=== PATIENT | male | born 1940 | race Caucasian/White ===

== ENCOUNTER → 2018-11-20 16:40 | Outpatient (CLI) | payer MEDICARE, SELFPAY ==
--- NOTE | 2018-11-20 16:43 | DI.RAD.S_ITS ---
PROCEDURE: XR LUMBAR SPINE 2-3V INDICATIONS: Sciatic leg pain, low back pain TECHNIQUE: 3 views of the lumbar spine were acquired. COMPARISON: None. FINDINGS: Bones: 5 [id number] vertebrae are present. There is grade I L1 on L2 and L2 on L3 retrolisthesis. No vertebral body compression fractures. No suspicious bony lesions. There are mild degenerative changes including intervertebral disc space narrowing, endplate sclerosis, osteophytosis, and facet sclerosis. Soft tissues: Overlying bowel gas pattern is normal. Scattered atheromatous calcifications are present within the abdominal aorta. IMPRESSION: Degenerative change and aortic atherosclerosis. Dictated by: Estrella Bush M.D. on 11/20/2018 at 17:52 Approved by: Estrella Bush M.D. on 11/20/2018 at 17:54
== END ==
PROVIDERS: PCP Internal Medicine; Visit Provider Nurse Practitioner
DX: M54.30 Sciatica, unspecified side (principal); M54.5 Low back pain; M47.816 Spondylosis without myelopathy or radiculopathy, lumbar region; I70.0 Atherosclerosis of aorta
CPT/HCPCS: 72100

== ENCOUNTER → 2018-12-01 13:21 | Outpatient (CLI) | payer MEDICARE, SELFPAY ==
--- NOTE | 2018-12-01 13:22 | DI.RAD.S_ITS ---
PROCEDURE: XR HIP W PEL IF DONE LT 2V INDICATIONS: Sciatic Pain TECHNIQUE: AP pelvis with lateral view(s) of the left hip(s). COMPARISON: [facility], , HIP 2V LEFT, 02/11/2013, 16:12. FINDINGS: Bones: No fractures or dislocations. Pelvic ring appears intact. No suspicious bony lesions. Lower lumbar spondylosis. Bilateral hip joint degeneration, mild. Soft tissues: The visualized bowel gas pattern is normal. No suspicious soft tissue calcifications. IMPRESSION: Mild bilateral hip joint degeneration, grossly unchanged on the left since 02/11/13. Dictated by: Arpit Cm M.D. on 12/01/2018 at 15:25 Approved by: Arpit Cm M.D. on 12/01/2018 at 15:26
== END ==
PROVIDERS: PCP Internal Medicine; Visit Provider Internal Medicine
DX: M54.30 Sciatica, unspecified side (principal); M16.0 Bilateral primary osteoarthritis of hip
CPT/HCPCS: 73502

== ENCOUNTER → 2019-01-16 09:31 | Outpatient (CLI) | payer MEDICARE, SELFPAY ==
--- NOTE | 2019-01-16 09:33 | DI.MRI.S_ITS ---
PROCEDURE: MR LUMBAR SPINE WO CON INDICATIONS: lumbar radiuclopathy TECHNIQUE: Noncontrast sagittal T1 spin echo and T2 fast echo, sagittal STIR, axial T1 and T2 fast spin echo through the lumbar spine. In cases with scoliosis, additional coronal T2 fast spin echo may be performed. COMPARISON: None. FINDINGS: Image quality: Good. There is patient motion on some sequences. Alignment and Curvature: There is normal bony alignment. Bone Marrow: Marrow is of normal overall signal. No acute vertebral body compression fractures. Spinal Cord: Conus medullaris terminates at the L1-L2 level. Visualized cord demonstrates normal signal and size. Paraspinous Soft Tissues: No paravertebral masses. T12-L1: Normal appearance L1-L2: Severe chronic disc levels. Posterior disc plus osteophyte. No canal stenosis. Mild bilateral foraminal stenosis. L2-L3: Diffuse posterior disc bulge. No canal stenosis. Mild bilateral foraminal stenosis. Mild facet hypertrophy. L3-L4: Posterior disc bulge. Facet and ligament hypertrophy. Borderline canal stenosis. Mild bilateral foraminal stenosis. L4-L5: There is a large acute left posterior disc extrusion measuring approximately 1.4 x 0.9 x 1.4 cm obliterating the left L5 nerve root and left S1 nerve root in the left lateral recess. This occurs below the exiting left L4 nerve root. Mild facet hypertrophy. L5-S1: Normal appearance. IMPRESSION: Large acute left posterior disc protrusion at L4-L5 obliterating the left L5 root and left S1 nerve in the left lateral recess. Dictated by: Chago Fisher M.D. on 01/18/2019 at 8:48 Approved by: Chago Fisher M.D. on 01/18/2019 at 8:59
== END ==
PROVIDERS: PCP Internal Medicine; Visit Provider Physical Medicine & Rehabilitation Pain Medicine
DX: M51.16 Intervertebral disc disorders with radiculopathy, lumbar region (principal); M48.062 Spinal stenosis, lumbar region with neurogenic claudication
CPT/HCPCS: 72148

== ENCOUNTER → 2019-02-17 15:38 | Outpatient (CLI) | payer MEDICARE, SELFPAY ==
[2019-02-17 16:08] LABS: Add Manual Diff / Slide Review NO; Basophils Absolute Auto 100 /uL (0-100); Basophils Percent Auto 1.2 % (0-2); Eosinophils Absolute Auto 200 /uL (0-450); Eosinophils Percent Auto 3.1 % (2-4); Hemoglobin 14.2 g/dL (13.5-17.5); Lymphocytes Absolute Auto 1900 /uL (1100-4500); Lymphocytes Percent Auto 25.1 % (25-40); Mean Corpuscular HGB Conc 33.8 % (30-36); Mean Corpuscular Hemoglobin 31.9 PG (26-34); Mean Corpuscular Volume 94.2 fL (80-100); Monocytes Absolute Auto 800 /uL (0-900); Monocytes Percent Auto 10.5 % (3-14); Neutrophils Absolute Auto 4600 /uL (1500-7000); Neutrophils Percent Auto 60.1 % (50-75); Platelet Count 212 X10^3/uL (150-400); Red Blood Cell Count 4.46 X10^6/uL (4.5-5.9); Red Cell Distribution Width 13.1 % (11.6-14.8); White Blood Cell Count 7.6 X10^3/uL (4.5-11.0)
== END ==
PROVIDERS: Orthopaedic Surgery; PCP Internal Medicine; Visit Provider Internal Medicine
DX: Z01.818 Encounter for other preprocedural examination (principal); E11.9 Type 2 diabetes mellitus without complications; E78.5 Hyperlipidemia, unspecified
CPT/HCPCS: 36415; 85025; 93005

== ENCOUNTER → 2019-05-05 08:00 | Outpatient (CLI) | payer MEDICARE, SELFPAY ==
[2019-05-05 08:32] LABS: Cholesterol 189 mg/dL (140-199); HDL Cholesterol 52 mg/dL (40-60); LDL Cholesterol Calculated 116 mg/dL (<100); Triglycerides 103 mg/dL (35-150)
[2019-05-06 15:39] LABS: Hemoglobin A1C% w Est Avg Glu 5.8 % (4.0-6.0)
== END ==
PROVIDERS: PCP Internal Medicine; Visit Provider Internal Medicine
DX: E11.9 Type 2 diabetes mellitus without complications (principal); E78.5 Hyperlipidemia, unspecified
CPT/HCPCS: 36415; 80061; 83036

== ENCOUNTER → 2020-06-01 15:35 | Outpatient (CLI) | payer MEDICARE, SELFPAY ==
[2020-06-01 16:59] LABS: Hemoglobin A1C% w Est Avg Glu 6.4 % (4.0-6.0)
[2020-06-01 17:02] LABS: Alanine Aminotransferase 19 IU/L (<50); Albumin 4.4 g/dL (3.5-5.0); Albumin Globulin Ratio 1.5 (1.0-2.8); Alkaline Phosphatase 59 U/L (38-126); Aspartate Aminotransferase 26 IU/L (17-59); BUN Creatinine Ratio 30.6 (6-22); Bilirubin Total 0.4 mg/dL (0.2-1.3); Blood Urea Nitrogen 22 mg/dL (9-20); Carbon Dioxide 32 mmol/L (22-32); Chloride 101 mmol/L (98-107); Estimated Glomerular Filt Rate > 60.0 mL/min (>60); Globulin 2.9 g/dL (1.7-4.1); Glucose 120 mg/dL (80-110); HEMOLYSIS < 15 (0-50); Potassium 4.9 mmol/L (3.4-5.1); Sodium 137 mmol/L (137-145); Total Protein 7.3 g/dL (6.3-8.2)
== END ==
PROVIDERS: PCP Internal Medicine; Referring Provider Internal Medicine; Visit Provider Internal Medicine
DX: E11.9 Type 2 diabetes mellitus without complications (principal); E78.2 Mixed hyperlipidemia; K21.9 Gastro-esophageal reflux disease without esophagitis
CPT/HCPCS: 36415; 80053; 83036

== ENCOUNTER → 2022-05-21 11:41 | Outpatient (CLI) | payer MEDICARE, SELFPAY ==
[2022-05-21 13:16] LABS: Alanine Aminotransferase 20 IU/L (<50); Albumin 4.6 g/dL (3.5-5.0); Albumin Globulin Ratio 1.6 (1.0-2.8); Alkaline Phosphatase 71 U/L (38-126); Aspartate Aminotransferase 22 IU/L (17-59); BUN Creatinine Ratio 24.2 (6-22); Bilirubin Total 0.6 mg/dL (0.2-1.3); Blood Urea Nitrogen 16 mg/dL (9-20); Calcium 9.7 mg/dL (8.4-10.2); Carbon Dioxide 27 mmol/L (22-32); Chloride 102 mmol/L (98-107); Cholesterol 204 mg/dL (140-199); Estimated Glomerular Filt Rate > 60 mL/min (>60); Globulin 2.9 g/dL (1.7-4.1); Glucose 128 mg/dL (80-110); HDL Cholesterol 51 mg/dL (40-60); HEMOLYSIS < 15 (0-50); LDL Cholesterol Calculated 130 mg/dL (<100); Potassium 4.8 mmol/L (3.4-5.1); Sodium 138 mmol/L (137-145); Total Protein 7.5 g/dL (6.3-8.2); Triglycerides 115 mg/dL (35-150)
[2022-05-21 15:29] LABS: Creatinine Urine Random 45.7 mg/dL
[2022-05-21 15:59] LABS: Microalbumin Urine Random < 0.6 mg/dL (0-1.6)
== END ==
PROVIDERS: PCP Internal Medicine; Referring Provider Internal Medicine; Visit Provider Internal Medicine
DX: Z00.00 Encounter for general adult medical examination without abnormal findings (principal); E11.9 Type 2 diabetes mellitus without complications; N13.8 Other obstructive and reflux uropathy; N40.1 Benign prostatic hyperplasia with lower urinary tract symptoms
CPT/HCPCS: 36415; 80053; 80061; 82043; 82570; 83036

== ENCOUNTER → 2023-04-10 09:59 | Outpatient (CLI) | payer MEDICARE, SELFPAY ==
--- NOTE | 2023-04-10 14:22 | PM.TREADMILL ---
Cardiac Stress Test Report Referral & Results Date Patient Seen: 04/10/23 Requesting provider: Rajan Staley Indication: Chest symptoms with right bundle branch block Rest ECG: Right bundle branch block Procedure Note: Today following both written and verbal informed consent the patient was exercised according to a standard Luis protocol patient went for a total of 3 minutes 5 seconds achieving a maximum heart rate of 133 maximum systolic blood pressure of 158. This is approximately 4.6 METS. Exercise was terminated at this point because of targets were met and fatigue on the part of the patient. Patient was also given Cardiolite through a previously started Hep-Lock IV by the diagnostic imaging staff approximately 1 minute prior to the cessation of exercise. Impression: There were some ST-T segment changes in the anterior leads although difficult to know if they represent ischemia in the setting of the pre-existing right bundle branch block Function aerobic impairment rates about-15% on the active scale although difficult to be sure given his age is far above the standards Please see perfusion imaging report for additional details regarding possible ischemia Please note: Actual ECG tracings can be found in the PACS system.
--- NOTE | 2023-04-10 22:29 | DI.NM.S_ITS ---
DATE OF SERVICE: 04/10/2023 PROCEDURE: Exercise treadmill stress and rest myocardial perfusion imaging with gating to assess ejection fraction and regional wall motion. ORDERING PROVIDER: Rajan Staley MD INDICATIONS: The patient is an 83-year-old male with hyperlipidemia and recent chest discomfort and palpitations. CARDIAC STRESS: The patient was able to exercise for 3 minutes 5 seconds on a standard Luis protocol suggesting good exercise capacity with an YANETH of -15%, achieving 4.6 METS. He had a normal heart rate and blood pressure response to exercise with a maximum heart rate of 133 BPM (99% of his predicted maximum). He had no chest discomfort or other anginal symptoms. His resting ECG shows a RBBB and LAFB, but fairly normal ST segments. With stress, there 2 to [address] depression in the anterior leads, perhaps reflective of repolarization abnormality from his RBBB, although becomes somewhat flat later in recovery, concerning for possible ischemia. There were no arrhythmias. At 2 minutes of exercise at a heart rate of 126 BPM, 26.4 mCi of technetium-99m Myoview was injected and he was imaged 20 minutes later using a gated SPECT acquisition protocol. Earlier in the day while at rest, he had been injected with 12.2 mCi of technetium-99m Myoview and was imaged 20 minutes later, again using a gated SPECT acquisition protocol. FINDINGS: 1. Raw data. There is fairly good myocardial tracer uptake. The lung/heart ratio is mildly elevated at 0.46, which can be a sign of pulmonary congestion but requires clinical correlation. The TID ratio is normal at 1.00. 2. Quantitated gated SPECT: Post-stress ejection fraction is estimated at 67% with mild hypokinesis of the proximal and mid inferior and inferolateral wall, sparing the distal portion. The resting ejection fraction is 68% with a similar contraction pattern although the inferior hypokinesis is less evident. Resting end-diastolic volume is normal at 108 mL. 3. Myocardial perfusion imaging: Post-stress supine images show a fairly dense perfusion defect in the proximal and mid inferior and inferolateral segment, extending slightly into the distal inferior segment, but sparing the apex. While this could be a pattern of diaphragmatic attenuation, this defect persists on the prone images suggesting it reflects a true perfusion defect. The resting images show a similar perfusion pattern but with slight improvement in the defect, predominantly at the periphery. IMPRESSION: 1. Abnormal myocardial perfusion study. 2. 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 This could be reflective of a chronically occluded but collateralized vessel, but clinical correlation is needed. 3. Preserved left ventricular systolic function with mild proximal and mid inferior and inferolateral hypokinesis that is slightly more prominent on the post-stress images than the resting images, consistent with an ischemic response. An elevated lung/heart ratio of 0.46 can be a indication of pulmonary congestion but requires clinical correlation. 4. Good exercise capacity without angina or arrhythmias. There is some post-stress ST depression in the anterolateral leads that could be reflective of ischemia but are nonspecific because of the presence of a right bundle branch block. Brandon Wadsworth - SACHIN/nate/ec doc#: [id number]/job#: [id number] dd: 04/10/2023 16:50:00 dt: 04/10/2023 21:54:00 DICTATING MD/COPIES TO: Theo Yanez MD; Rajan Staley MD COPIES MNE: SOSA;
== END ==
PROVIDERS: PCP Internal Medicine; Referring Provider Internal Medicine; Visit Provider Internal Medicine
DX: R07.9 Chest pain, unspecified (principal); I45.2 Bifascicular block; R94.31 Abnormal electrocardiogram [ECG] [EKG]
CPT/HCPCS: 78452; 93016; 93017; 93018; A9502

== ENCOUNTER → 2023-09-18 15:15 | Outpatient (CLI) | payer MEDICARE, SELFPAY ==
--- NOTE | 2023-09-18 15:18 | DI.RAD.S_ITS ---
PROCEDURE: XR LUMBAR SPINE 2-3V INDICATIONS: back pain TECHNIQUE: 3 views of the lumbar spine were acquired. COMPARISON: [facility], CR, XR LUMBAR SPINE 2-3V, 11/20/2018, 17:00. FINDINGS: Bones: 5 [id number] vertebrae are present. There is 5 mm retrolisthesis of L1 on L2, L2 on L3 and L3 on L4. No vertebral body compression fractures. Degenerative endplate changes are noted throughout lumbar spine. No suspicious bony lesions. Soft tissues: Overlying bowel gas pattern is normal. No suspicious soft tissue calcifications. IMPRESSION: Grade 1 retrolisthesis at L1-2 through L3-4 levels. No acute compression fracture. Degenerative disc disease throughout lumbar spine. Dictated by: Timoteo Maciel M.D. on 09/18/2023 at 16:27 Approved by: Timoteo Maciel M.D. on 09/18/2023 at 16:29
--- NOTE | 2023-09-18 15:18 | DI.RAD.S_ITS ---
PROCEDURE: XR CHEST 2V INDICATIONS: dysphagia TECHNIQUE: 2 views of the chest were acquired. COMPARISON: None. FINDINGS: Surgical changes and devices: None. Lungs and pleura: There is mild pulmonary vascular congestion. No definite focal infiltrate. Hyperinflation is also seen. No pleural effusions or pneumothorax. Mediastinum: Mildly tortuous thoracic aorta is seen. Heart size is normal. Bones and chest wall: No suspicious bony abnormalities. Soft tissues appear unremarkable. IMPRESSION: COPD and mild congestion. No definite focal infiltrate. No pleural effusion or pneumothorax. Dictated by: Timoteo Maciel M.D. on 09/18/2023 at 16:25 Approved by: Timoteo Maciel M.D. on 09/18/2023 at 16:27
[2023-09-18 16:32] LABS: Add Manual Diff / Slide Review NO; Basophils Absolute Auto 100 /uL (0-100); Basophils Percent Auto 0.8 % (0-2); Eosinophils Absolute Auto 200 /uL (0-450); Eosinophils Percent Auto 2.1 % (2-4); Hematocrit 31.7 % (41-53); Hemoglobin 10.8 g/dL (13.5-17.5); Lymphocytes Absolute Auto 1200 /uL (1100-4500); Lymphocytes Percent Auto 13.3 % (25-40); Mean Corpuscular HGB Conc 34.1 % (30-36); Mean Corpuscular Hemoglobin 29.9 PG (26-34); Mean Corpuscular Volume 87.7 fL (80-100); Monocytes Absolute Auto 900 /uL (0-900); Monocytes Percent Auto 10.3 % (3-14); Neutrophils Absolute Auto 6400 /uL (1500-7000); Neutrophils Percent Auto 73.5 % (50-75); Platelet Count 341 X10^3/uL (150-400); Red Blood Cell Count 3.62 X10^6/uL (4.5-5.9); Red Cell Distribution Width 14.3 % (11.6-14.8); White Blood Cell Count 8.7 X10^3/uL (4.5-11.0)
[2023-09-18 17:11] LABS: Erythrocyte Sedimentation Rate 40 MM/HR (0-15)
[2023-09-18 18:24] LABS: Alanine Aminotransferase 14 IU/L (<50); Albumin 3.5 g/dL (3.5-5.0); Albumin Globulin Ratio 1.3 (1.0-2.8); Alkaline Phosphatase 93 U/L (38-126); Aspartate Aminotransferase 24 IU/L (17-59); BUN Creatinine Ratio 29.8 (6-22); Bilirubin Total 0.5 mg/dL (0.2-1.3); Blood Urea Nitrogen 17 mg/dL (9-20); C-Reactive Protein Quant 2.5 mg/dL (<1.0); Calcium 9.3 mg/dL (8.4-10.2); Carbon Dioxide 28 mmol/L (22-32); Chloride 97 mmol/L (98-107); Estimated Glomerular Filt Rate > 60 mL/min (>60); Globulin 2.7 g/dL (1.7-4.1); Glucose 125 mg/dL (80-110); HEMOLYSIS < 15 (0-50); Potassium 3.9 mmol/L (3.4-5.1); Sodium 131 mmol/L (137-145); Total Protein 6.2 g/dL (6.3-8.2)
== END ==
PROVIDERS: PCP Internal Medicine; Referring Provider Internal Medicine; Visit Provider Internal Medicine
DX: K22.70 Barrett's esophagus without dysplasia (principal); R13.10 Dysphagia, unspecified; M54.9 Dorsalgia, unspecified; K21.9 Gastro-esophageal reflux disease without esophagitis; M43.16 Spondylolisthesis, lumbar region; M51.36 Other intervertebral disc degeneration, lumbar region; J44.9 Chronic obstructive pulmonary disease, unspecified
CPT/HCPCS: 36415; 71046; 72100; 80053; 85025; 85651; 86140

== ENCOUNTER → 2023-09-24 11:20 | Outpatient (CLI) | payer MEDICARE, SELFPAY ==
--- NOTE | 2023-09-24 11:21 | DI.RAD.S_ITS ---
PROCEDURE: FL BARIUM SWALLOW INDICATIONS: Dysphagia COMPARISON: None. FINDINGS: There is trace reappearance of peristaltic activity in the distal 3rd of the esophagus. There is a focal area of narrowing within the distal 3rd of the esophagus. Distal to this point, the overall esophagus is narrowed and irregular. Proximal to this region, contrast demonstrated reflux and delayed emptying. There was delayed passage of the calibrated barium tablet at the gastroesophageal junction. 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 Underlying malignancy cannot be excluded. Further evaluation with upper endoscopy is recommended. Dictated by: Apoorva Gamble M.D. on 09/24/2023 at 15:11 Approved by: Apoorva Gamble M.D. on 09/24/2023 at 15:13
[2023-09-24 12:30] LABS: Add Manual Diff / Slide Review NO; Basophils Absolute Auto 100 /uL (0-100); Basophils Percent Auto 0.9 % (0-2); Eosinophils Absolute Auto 300 /uL (0-450); Eosinophils Percent Auto 2.7 % (2-4); Hematocrit 31.4 % (41-53); Hemoglobin 10.6 g/dL (13.5-17.5); Lymphocytes Absolute Auto 1200 /uL (1100-4500); Lymphocytes Percent Auto 12.9 % (25-40); Mean Corpuscular HGB Conc 33.9 % (30-36); Mean Corpuscular Hemoglobin 30.7 PG (26-34); Mean Corpuscular Volume 90.6 fL (80-100); Monocytes Absolute Auto 1100 /uL (0-900); Monocytes Percent Auto 11.4 % (3-14); Neutrophils Absolute Auto 6900 /uL (1500-7000); Neutrophils Percent Auto 72.1 % (50-75); Platelet Count 359 X10^3/uL (150-400); Red Blood Cell Count 3.47 X10^6/uL (4.5-5.9); Red Cell Distribution Width 15.2 % (11.6-14.8); White Blood Cell Count 9.5 X10^3/uL (4.5-11.0)
[2023-09-24 12:39] LABS: HEMOLYSIS < 15 (0-50); Iron 53 ug/dL (49-181)
[2023-09-24 12:49] LABS: Percent Iron Saturation 18 % (20-50); Total Iron Binding Capacity 289 ug/dL (261-462); Transferrin 231 mg/dL (206-381)
[2023-09-24 13:10] LABS: TSH w/ Reflex to FT4 1.56 uIU/mL (0.47-4.68)
[2023-09-24 13:18] LABS: Ferritin 26 ng/mL (18-464)
[2023-09-24 13:49] LABS: Folate 14.2 ng/mL (2.76-20.0); Vitamin B12 936 pg/mL (239-931)
[2023-09-24 15:45] LABS: Reticulocyte Count, Percent 2.2 % (0.9-2.6)
[2023-09-25 08:11] LABS: Haptoglobin 312 mg/dL (38-329)
== END ==
LOC: RAD 11:20
PROVIDERS: PCP Internal Medicine; Referring Provider Internal Medicine; Visit Provider Internal Medicine
DX: R13.10 Dysphagia, unspecified (principal); D64.9 Anemia, unspecified
CPT/HCPCS: 36415; 74220; 82607; 82728; 82746; 83010; 83540; 83550; 84443; 85025; 85045

== ENCOUNTER 2023-10-31 14:56 | Day surgery (SDC) | payer MEDICARE, SELFPAY ==
[2023-10-31] VITALS (12 sets, daily range): BP systolic 75–118; BP diastolic 38–74; PULSE 67–76; RESP 11–20; TEMP 36.2–36.9; O2SAT 97–100
--- NOTE | 2023-10-31 | PATH_ITS ---
[facility] Accession Number: [id number] No. of containers..01 Tissue . 01 Material submitted: . esophagus - ESOPHAGEAL MASS . 01 Diagnosis: ESOPHAGEAL MASS: 1. Invasive squamous cell carcinoma, moderately differentiated. 2. No lymphovascular or perineural invasion identified. . Specimen Comments: This case has also been reviewed by Dr. Jessica Abad, who concurs with the diagnosis. These results were discussed with Dr. Stallworth by Dr. Heart on 11/06/2023 at 1210. STO 11/06/2023 1229 Local . 01 Electronically signed: . Ruben Heart MD, Pathologist NPI- [id number] . 01 Gross description: . Received in formalin, labeled with two identifiers and esophageal mass biopsy, are two riley soft tissue fragments measuring 0.3-0.4 cm in greatest dimension. Submitted entirely in cassette A1. ([id number]) /FRR 11/06/2023 1229 Local . 01 Pathologist provided ICD-10: C15.9 . 01 CPT . 926081 Specimen Comment: A courtesy copy of this report has been sent to [phone] Performed at: 01 [facility] [address] [place] [address] [address] [facility], [place], [place] [id number] MD Ruben Heart MD Phone: [phone]
[2023-10-31] MEDS: LACTATED RINGERS 1,000 ML 150 ML IV ×2 (15:16→16:37)
--- NOTE | 2023-10-31 15:44 | P.OP.PRE_ITS ---
Pre-operative Note Interval Note History & Physical reviewed/Exam performed by Physician: Yes Changes to H&P: No H&P completed within 30 days and has changed as indicated here:: Diagnostic esophagogastroduodenoscopy with possible dilation Technical details were discussed. Risks, benefits, alternatives explained. Risks including but not limited to myocardial infarction, aspiration, bleeding, pain, missed lesion, incomplete examination, need for further radiographic juanpablo dies, intestinal injury, and need for major abdominal surgery were discussed. All questions were answered to their satisfaction, and they are in agreement with this plan.
--- NOTE | 2023-10-31 16:35 | SUR.PHASEI ---
Suction at bedside for cough. No distress noted.
--- NOTE | 2023-10-31 16:44 | SUR.PHASEI ---
Assumed care. BP 79/50. Dr. Connors notified and MD evaluated patient. Dr. Stallworth at bedside with daughter.
--- NOTE | 2023-10-31 16:47 | SUR.PHASEI ---
Dr. Connors aware of frequent PVCs.
--- NOTE | 2023-10-31 17:06 | PM.OP.EGD ---
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 Surgeon: Mike Stallworth Procedure Notes Procedure in detail: The history and physical was performed/updated and the patient is ASA class is 2. The procedure was discussed in detail with the patient. Potential risks complications including infection, bleeding, missed diagnosis, perforation, need for surgery, and were explained. Their questions were answered and informed consent was obtained. Patient placed in left lateral decubitus position. Time out was performed. Procedural sedation was administered by Anesthesia. A bite block was placed. the scope was inserted into the mouth and advanced into the esophagus. At 30 cm from the incisors we encountered a large fungating circumferential and nearly obstructive mass within the esophagus consistent with esophageal carcinoma. The EGD scope which is approximately 8 mm in diameter could barely pass by the mass into the stomach. Multiple biopsies of the mass were taken with forceps. The mass extends several cm in length to the top of the stomach. Stomach was decompressed. The scope was slowly withdrawn. Findings: possible cancer Specimen(s): other (Esophageal mass) Impression: Obstructing esophageal carcinoma Post-procedure Plan for aftercare: I had an extensive discussion with the patient and his daughter in regards to today's findings. They were unexpected to the patient however explained that this was in fact my primary concern going into the procedure. I explained that he has an obstructing mass which is almost certainly esophageal carcinoma and without therapy will ultimately cause a complete esophageal obstruction. They had numerous questions which I answered to the best of my ability. On the whole he tends to favor no aggressive measures such as chemotherapy, esophageal stent placement or surgical evaluation. His preference while not yet finalized is likely to proceed with hospice which is quite reasonable. I did discuss with them the possibility of a palliative feeding tube. I think this would not be possible in an endoscopic fashion at this point given the degree of obstruction however it could be performed in a an open manner. While this may extend his life slightly I doubt that it will significantly change his trajectory. Disposition: same day surgery
== END 2023-10-31 17:40 | disposition home or self-care (01) ==
PROVIDERS: PCP Internal Medicine; Referring Provider Surgery; Visit Provider Surgery
PROC: 0DJ08ZZ Inspection of Upper Intestinal Tract, Via Natural or Artificial Opening Endoscopic (ICD-10-PCS; CPT 43235; principal; 2023-10-31 15:45)
DX: C15.9 Malignant neoplasm of esophagus, unspecified (principal); R63.4 Abnormal weight loss
CPT/HCPCS: 43239; J2704

== ENCOUNTER → 2023-11-06 14:29 | Outpatient (CLI) | payer MEDICARE, SELFPAY ==
--- NOTE | 2023-11-06 14:30 | DI.RAD.S_ITS ---
PROCEDURE: XR CHEST 2V INDICATIONS: hypoxia TECHNIQUE: 2 views of the chest were acquired. COMPARISON: [facility], CR, XR CHEST 2V, 09/18/2023, 15:23. FINDINGS: Surgical changes and devices: None. Lungs and pleura: Diffuse fibrotic changes are redemonstrated. There is a new right pleural effusion when compared with the prior film dated September 18, 2023 which is small to moderate in size. Patchy airspace opacities are present at the right apex which are new from the prior study. Left lung is clear. Mediastinum: Mediastinal contours are normal. Heart size is normal. Bones and chest wall: No suspicious bony abnormalities. Soft tissues appear unremarkable. IMPRESSION: New right pleural effusion and patchy right upper lobe airspace opacities. Dictated by: Estrella Bush M.D. on 11/06/2023 at 16:12 Approved by: Estrella Bush M.D. on 11/06/2023 at 16:13
== END ==
PROVIDERS: PCP Internal Medicine; Referring Provider Internal Medicine; Visit Provider Internal Medicine
DX: J90 Pleural effusion, not elsewhere classified (principal); R09.02 Hypoxemia
CPT/HCPCS: 71046